=== PATIENT | female | born 1975 | race Asian ===

== ENCOUNTER 2017-05-28 20:26 | Emergency (ER) | payer MEDICAID, OTHER ==
[~2017-05-28] VITALS: Ht 147.3 cm; Wt 73.6 kg
[~2017-05-28 20:26] MED LIST: SYNT75TA PO
[2017-05-28 20:50] VITALS: BP 146/71; PULSE 95; RESP 18; TEMP 98.5; O2SAT 98
[2017-05-28 22:23] LABS: AUTOMATED NEUTROPHIL # 5.4 TH/MM3 (1.8-7.7); BASOPHIL % 0.5 % (0.0-2.0); EOSINOPHIL # 0.2 TH/MM3 (0-0.4); EOSINOPHIL % 2.5 % (0.0-4.0); HEMOGLOBIN 13.7 GM/DL (11.6-15.3); LYMPH % 29.1 % (9.0-44.0); LYMPHOCYTE # 2.6 TH/MM3 (1.0-4.8); MEAN CELL VOLUME 79.7 FL (80.0-100.0); MEAN CORPUSCULAR HEMOGLOBIN 27.3 PG (27.0-34.0); MEAN CORPUSCULAR HGB CONC 34.3 % (32.0-36.0); MEAN PLATELET VOLUME 6.9 FL (7.0-11.0); MONO % 8.7 % (0.0-8.0); MONOCYTE # 0.8 TH/MM3 (0-0.9); NEUT % 59.2 % (16.0-70.0); PLATELET COUNT 323 TH/MM3 (150-450); RED BLOOD COUNT 5.02 MIL/MM3 (4.00-5.30); RED CELL DISTRIBUTION WIDTH 13.4 % (11.6-17.2)
[2017-05-28] MEDS ORDERED: SODIUM CHLOR 0.9% 1000 ML INJ 1,000 ML IV SCH (22:23)
[2017-05-28 22:25] VITALS: RESP 16; O2SAT 98
[2017-05-28] MEDS ORDERED: ONDANSETRON HCL 4 MG/2 ML VIAL IVP ONE (22:30)
[2017-05-28] MEDS ORDERED: SODIUM CHLORIDE 0.9% FLUSH 10 ML FLUSH IV FLUSH PRN (22:30)
[2017-05-28] MEDS ORDERED: KETOROLAC TROMETHAMINE 30 MG/ML (IVP) VIAL IVP ONE (22:30)
[2017-05-28] MEDS ORDERED: MORPHINE SULFATE 4 MG/ML INJ IV PUSH ONE (22:30)
--- NOTE | 2017-05-28 22:31 | PD ---
HPI Chief Complaint: Abdominal Pain Time Seen by Provider: 22:11 Travel History International Travel<30 days: No Contact w/Intl Traveler<30days: No Traveled to known affect area: No History of Present Illness HPI The patient is a 41-year-old female who presents to the emergency department for abdominal pain. The patient states she developed right upper quadrant abdominal pain to right yesterday. The pain has persisted, is worse with eating , nonradiating, and similar to her pain from previous gallstones. The patient does have a history of cholecystectomy and hysterectomy. The patient denies any nausea or vomiting, does note decreased oral intake. She denies any diarrhea. She denies any dysuria, frequency, urgency, or vaginal discharge. The patient does note subjective fevers with intermittent chills. She denies any cough, chest pain, or shortness of breath. Symptoms are moderate. She has tried [id number] Tums without any alleviation of her symptoms. PFSH Past Medical History Immunizations Current: Yes Thyroid Disease: Yes ?: Not Past Surgical History Cholecystectomy: Yes Hysterectomy: Yes Tonsillectomy: Yes Social History Alcohol Use: No Tobacco Use: No Substance Use: No Allergies-Medications (Allergen,Severity, Reaction): Coded Allergies: No Known Allergies (Unverified , 03/04/14) Reported Meds & Prescriptions Reported Meds & Active Scripts Active Reported Synthroid 75 mcg (Levothyroxine Sodium) 75 Mcg Tab 0.175 Mg PO DAILY Review of Systems Except as stated in HPI: all other systems reviewed are Neg General / Constitutional: Positive: Fever, Chills Cardiovascular: No: Chest Pain or Discomfort Respiratory: No: Cough, Shortness of Breath Gastrointestinal: Positive: Abdominal Pain, Loss of Appetite, No: Nausea, Vomiting, Diarrhea Genitourinary: No: Dysuria, Discharge, Vaginal Bleeding Skin: No Rash Physical Exam Narrative GENERAL: Awake, alert, pleasant 41-year-old female who appears her stated age and is in no acute respiratory distress. SKIN: Focused skin assessment warm/dry. HEAD: Atraumatic. Normocephalic. EYES: Pupils equal and round. No scleral icterus. No injection or drainage. ENT: No nasal bleeding or discharge. Slightly dry mucous membranes. NECK: Trachea midline. No JVD. CARDIOVASCULAR: Regular rate and rhythm. No murmur appreciated. RESPIRATORY: No accessory muscle use. Clear to auscultation. Breath sounds equal bilaterally. GASTROINTESTINAL: Abdomen soft, tender palpation right upper quadrant and right flank. Well-healed laparoscopic surgical scars. No guarding or rigidity. Back: No CVA tenderness. MUSCULOSKELETAL: No obvious deformities. No clubbing. No cyanosis. No edema. NEUROLOGICAL: Awake and alert. No obvious cranial nerve deficits. Motor grossly within normal limits. Normal speech. PSYCHIATRIC: Appropriate mood and affect; insight and judgment normal. Data Data Last Documented VS Vital Signs Date Time Temp Pulse Resp B/P (MAP) Pulse Ox O2 Delivery O2 Flow Rate FiO2 05/28/17 22:25 16 98 Room Air 05/28/17 20:50 98.5 95 146/71 (96) Orders Orders Complete Blood Count With Diff (05/28/17 20:53) Comprehensive Metabolic Panel (05/28/17 20:53) Lipase (05/28/17 20:53) Urinalysis - C+S If Indicated (05/28/17 20:53) Ed Urine Pregnancytest Poc (05/28/17 20:53) Ct Abd/Pel W/O Iv Contrast (05/28/17 22:23) Iv Access Insert/Monitor (05/28/17 22:23) Ecg Monitoring (05/28/17 22:23) Oximetry (05/28/17 22:23) Morphine Inj (Morphine Inj) (05/28/17 22:30) Ondansetron Inj (Zofran Inj) (05/28/17 22:30) Sodium Chlor 0.9% 1000 Ml Inj (Ns 1000 M (05/28/17 22:23) Sodium Chloride 0.9% Flush (Ns Flush) (05/28/17 22:30) Ketorolac Inj (Toradol Inj) (05/28/17 22:30) Potassium Chloride (Kcl) (05/28/17 23:45) Morphine Inj (Morphine Inj) (05/29/17 00:45) Ed Discharge Order (05/29/17 00:34) Labs Laboratory Tests Test 05/28/17 22:15 05/28/17 23:45 White Blood Count 9.0 TH/MM3 Red Blood Count 5.02 MIL/MM3 Hemoglobin 13.7 GM/DL Hematocrit 40.0 % Mean Corpuscular Volume 79.7 FL Mean Corpuscular Hemoglobin 27.3 PG Mean Corpuscular Hemoglobin Concent 34.3 % Red Cell Distribution Width 13.4 % Platelet Count 323 TH/MM3 Mean Platelet Volume 6.9 FL Neutrophils (%) (Auto) 59.2 % Lymphocytes (%) (Auto) 29.1 % Monocytes (%) (Auto) 8.7 % Eosinophils (%) (Auto) 2.5 % Basophils (%) (Auto) 0.5 % Neutrophils # (Auto) 5.4 TH/MM3 Lymphocytes # (Auto) 2.6 TH/MM3 Monocytes # (Auto) 0.8 TH/MM3 Eosinophils # (Auto) 0.2 TH/MM3 Basophils # (Auto) 0.0 TH/MM3 CBC Comment DIFF FINAL Differential Comment Blood Urea Nitrogen 8 MG/DL Creatinine 0.73 MG/DL Random Glucose 195 MG/DL Total Protein 8.2 GM/DL Albumin 3.7 GM/DL Calcium Level 8.6 MG/DL Alkaline Phosphatase 69 U/L Aspartate Amino Transf (AST/SGOT) 23 U/L Alanine Aminotransferase (ALT/SGPT) 56 U/L Total Bilirubin 0.3 MG/DL Sodium Level 138 MEQ/L Potassium Level 3.2 MEQ/L Chloride Level 103 MEQ/L Carbon Dioxide Level 25.8 MEQ/L Anion Gap 9 MEQ/L Estimat Glomerular Filtration Rate 87 ML/MIN Lipase 164 U/L Urine Color YELLOW Urine Turbidity HAZY Urine pH 6.5 Urine Specific [place] 1.016 Urine Protein TRACE mg/dL Urine Glucose (UA) 300 mg/dL Urine Ketones NEG mg/dL Urine Occult Blood NEG Urine Nitrite NEG Urine Bilirubin NEG Urine Urobilinogen LESS THAN 2.0 MG/DL Urine Leukocyte Esterase NEG Urine RBC 1 /hpf Urine WBC 3 /hpf Urine Squamous Epithelial Cells 8 /hpf Urine Bacteria RARE /hpf Urine Mucus FEW /lpf Microscopic Urinalysis Comment CULT NOT INDICATED MDM Medical Decision Making Medical Screen Exam Complete: Yes Emergency Medical Condition: Yes Medical Record Reviewed: Yes Interpretation(s) Last Impressions Abdomen/Pelvis CT 05/28/172222 Signed Impressions: Service Date/Time: Sunday, May 28, 2017 23:08 - CONCLUSION: Hepatic steatosis. No acute CT findings Olivier Min MD Differential Diagnosis Differential diagnosis includes atypical appendicitis, retained biliary stone, pancreatitis, gastritis, peptic ulcer disease, lower lobe pneumonia, diverticulitis. Narrative Course IV was established, labs are drawn and sent, and the patient was placed on cardiac telemetry monitoring and continuous pulse oximetry monitoring. The patient was a administered morphine, Toradol, Zofran, and IV fluids. Noncontrast CT of the abdomen and pelvis was performed. CT of the abdomen and pelvis reveals hepatic steatosis, no acute CT findings. Lipase was unremarkable , no evidence of pancreatitis. ALT was slightly elevated, however, the rest of the LFTs were unremarkable, I doubt retained biliary stone. The patient may need further workup outpatient with a regional sales leader for endoscopy to evaluate for possible gastritis and/or peptic ulcer disease. The patient will be placed on Zantac twice a day. The patient was reassessed at 12:30 AM, still had mild pain, therefore, was administered morphine 2 mg intravenously, she is taken a cab home. I did advise her to follow-up with her primary physician if pain persists that she may need evaluation by gastroenterology. Return for fever or intractable nausea/vomiting/abdominal pain. Patient agrees and understands. Diagnosis Primary Impression: Abdominal pain Qualified Codes: R10.11 - Right upper quadrant pain Patient Instructions: General Instructions Additional Instructions: Medications as directed. Follow-up with gastroenterology if symptoms persist. Please provide the patient a copy of her CT results and lab results at discharge. Clear liquid diet and advance as tolerated. Med/Other Pt SpecificInfo: Prescription(s) given Scripts Hydrocodone-Acetaminophen ([place]) 5 Mg-325 Mg Tab 1 TAB PO Q6H Y for PAIN, #10 TAB 0 Refills Prov: Anders Singh MD 05/29/17 Ondansetron Odt (Zofran Odt) 4 Mg Tab 4 MG SL Q6HR Y for Nausea/Vomiting, #7 TAB 0 Refills Prov: Anders Singh MD 05/29/17 Ranitidine (Zantac 150 Maximum Strength) 150 Mg Tab 150 MG PO BID for 14 Days, #28 TAB Prov: Anders Singh MD 05/29/17 Disposition: 01 DISCHARGE HOME Condition: Stable Anders Singh MD May 28, 2017 22:31
[2017-05-28 22:39] LABS: ALBUMIN 3.7 GM/DL (3.4-5.0); ALT (GPT) 56 U/L (10-53); AST (GOT) 23 U/L (15-37); BICARBONATE 25.8 MEQ/L (21.0-32.0); BLOOD UREA NITROGEN 8 MG/DL (7-18); CALCIUM 8.6 MG/DL (8.5-10.1); CHLORIDE 103 MEQ/L (98-107); CREATININE 0.73 MG/DL (0.50-1.00); GLOMERULAR FILTRATION RATE 87 ML/MIN (>89); GLUCOSE,RANDOM 195 MG/DL (74-106); SODIUM (NA) 138 MEQ/L (136-145)
[2017-05-28 22:42] LABS: ALKALINE PHOSPHATASE 69 U/L (45-117); TOTAL BILIRUBIN ADULT 0.3 MG/DL (0.2-1.0); TOTAL PROTEIN 8.2 GM/DL (6.4-8.2)
--- NOTE | 2017-05-28 23:22 | RADRPT ---
EXAM DATE/TIME: 05/28/2017 23:08 [facility] COMPARISON: No previous studies available for comparison. INDICATIONS : Right side abdominal pain. ORAL CONTRAST: No oral contrast ingested. RADIATION DOSE: 6.57 CTDIvol (mGy) MEDICAL HISTORY : None SURGICAL HISTORY : Cholecystectomy. Hysterectomy. ENCOUNTER: Initial ACUITY: 3 days PAIN SCALE: 10/10 LOCATION: Right abdomen. TECHNIQUE: Volumetric scanning of the abdomen and pelvis was performed. Using automated exposure control and ad justment of the mA and/or kV according to patient size, radiation dose was kept as low as reasonably achievable to obtain optimal diagnostic quality images. DICOM format image data is available electro nically for review and comparison. FINDINGS: LOWER LUNGS: Mild atelectasis in the posterior lateral left lung base LIVER: Diffusely diminished hepatic attenuation suggesting steatosis. No focal mass. No biliary ductal dilat ation. Gallbladder surgically absent SPLEEN: Normal size without lesion. PANCREAS: Within normal limits. KIDNEYS: Normal in size and shape. There is no mass, stone, or hydronephrosis. ADRENAL GLANDS: Within normal limits. VASCULAR: There is no aortic aneurysm. BOWEL/MESENTERY: The stomach, small bowel, and colon demonstrate no acute abnormality. There is no free intraperitone al air or fluid. ABDOMINAL WALL: Within normal limits. RETROPERITONEUM: There is no lymphadenopathy. BLADDER: No wall thickening or mass. REPRODUCTIVE: Within normal limits. INGUINAL: There is no lymphadenopathy or hernia. MUSCULOSKELETAL: Within normal limits for patient age. CONCLUSION: Hepatic steatosis. No acute CT findings Olivier Min MD on May 28, 2017 at 23:16 Board Certified Radiologist. This report was verified electronically.
[2017-05-28] MEDS ORDERED: POTASSIUM CHLORIDE 20 MEQ CONTROLLED RELEASE TAB PO ONE (23:45)
[2017-05-29 00:03] LABS: BACTERIA, URINE RARE /hpf; BILIRUBIN, URINE NEG (NEG); BLOOD, URINE NEG (NEG); GLUCOSE,URINE 300 mg/dL (NEG); KETONE, URINE NEG (NEG); MUCUS URINE FEW /lpf (OCC); NITRITE,URINE NEG (NEG); PH, URINE 6.5 (5.0-8.5); SQUAMOUS EPITHELIAL CELL URINE 8 /hpf (0-5); URINE COLOR YELLOW (YELLW/STRAW); URINE LEUKOCYTE ESTERASE NEG (NEG)
[2017-05-29] MEDS ORDERED: ZANTTAB PO (00:36)
[2017-05-29] MEDS ORDERED: ZOFR4TAB3 SL (00:36)
[2017-05-29] MEDS ORDERED: NORC5TAB PO (00:36)
[2017-05-29] MEDS ORDERED: MORPHINE SULFATE 2 MG/ML SYRINGE IV PUSH ONE (00:45)
== END 2017-05-29 00:53 | disposition home or self-care (01) ==
LOC: NEPD 20:26
DX: R10.11 Right upper quadrant pain (principal); K76.0 Fatty (change of) liver, not elsewhere classified
CPT/HCPCS: 74176; 80053; 81001; 83690; 84703; 85025; 96361; 96374; 96375; 99284; J1885; J2270; J2405; J7030